=== PATIENT | male | born 1950 | race African-American/Black ===

== ENCOUNTER 2017-12-15 10:19 | Emergency (ER) | payer MEDICARE ==
[~2017-12-15] VITALS: Ht 182.9 cm; Wt 94.9 kg
[2017-12-15 10:21] VITALS: BP 154/100
[2017-12-15] MEDS ORDERED: OXYcodone/APAP 10/325MG TABLET ONE (10:36)
[2017-12-15] MEDS ORDERED: OXYcodone/APAP 10/325MG TABLET PO ONE (11:00)
== END 2017-12-15 11:04 | disposition home or self-care (01) ==
LOC: ED 10:44
DX: G89.29 Other chronic pain (principal); M25.551 Pain in right hip; M25.552 Pain in left hip; Z76.0 Encounter for issue of repeat prescription
CPT/HCPCS: 99283

== ENCOUNTER 2018-02-02 15:07 | Emergency (ER) | payer MEDICARE ==
[~2018-02-02] VITALS: Ht 182.9 cm; Wt 94.3 kg
[2018-02-02] MEDS ORDERED: MORPHINE SULFATE 4 MG/ML, 1ML IVPush PRN (15:30)
[2018-02-02] MEDS ORDERED: METHYLNALTREXONE 12 MG/0.6 ML SQ ONE ×2 (15:30→15:38)
[2018-02-02] MEDS ORDERED: SODIUM CHLORIDE FLUSH 10ML SYR IVF ONE (15:30)
[2018-02-02] MEDS ORDERED: MORPHINE SULFATE 4 MG/ML, 1ML ONE ×2 (15:38→17:00)
[2018-02-02 16:10] LABS: CULTURE INDICATED? NO; MICROSCOPIC NOT IND
[2018-02-02 16:50] VITALS: BP 175/96
[2018-02-02] MEDS ORDERED: MORPHINE SULFATE 4 MG/ML, 1ML IVPush ONE (17:00)
[2018-02-02 17:16] LABS: ALANINE AMINOTRANSFERASE 49 U/L (12-78); ALBUMIN 4.2 g/dL (3.4-5.0); ANION GAP 9 mmol/L (5-15); CALCIUM 9.3 mg/dL (8.5-10.1); CHLORIDE 107 mmol/L (98-107)
[2018-02-02 17:19] LABS: ALKALINE PHOSPHATASE 66 U/L (45-117); CREATININE 1.73 mg/dL (0.7-1.3); TOTAL PROTEIN 8.7 g/dL (6.4-8.2)
[2018-02-02] MEDS ORDERED: HYDR-3307 PO (20:16)
[2018-02-02] MEDS ORDERED: LISI-167 PO (20:16)
== END 2018-02-02 17:35 | disposition left against medical advice (07) ==
LOC: ED 17:29
DX: R10.84 Generalized abdominal pain (principal); I10 Essential (primary) hypertension; N40.0 Benign prostatic hyperplasia without lower urinary tract symptoms
CPT/HCPCS: 36415; 80053; 81003; 83690; 96372; 96374